=== PATIENT | female | born 1975 | race Asian ===

== ENCOUNTER → 2018-03-23 | Outpatient (CLI) | payer OTHER ==
[~2018-03-23] MED LIST: CYCL10 PO; DIAZ5 PO; HYDACE5 PO; MULVITMINE PO; OMEP10ER PO; PROACE100 PO
== END ==
LOC: LAB 15:05 → LAB SHORT 15:05
PROVIDERS: Obstetrics & Gynecology
DX: Z01.419 Encounter for gynecological examination (general) (routine) without abnormal findings (principal)
CPT/HCPCS: 87624; G0123

== ENCOUNTER → 2018-04-06 | Outpatient (CLI) | payer OTHER | END | disposition home or self-care (01) | LOC: LAB SHORT 13:23 → PLD 13:23 | PROVIDERS: Obstetrics & Gynecology | DX: R87.612 Low grade squamous intraepithelial lesion on cytologic smear of cervix (LGSIL) (principal) | CPT/HCPCS: 88305 ==

== ENCOUNTER 2021-06-03 02:00 | Inpatient (IN) | payer OTHER ==
[~2021-06-03] VITALS: Ht 152.4 cm; Wt 70.0 kg
[~2021-06-03 02:00] MED LIST changes: -MULVITMINE PO; -OMEP10ER PO; +OMEP20ER PO; +PRENATAL TABLE1 EAC2 PO
[2021-06-03 02:46] LABS: BASOPHILS ABSOLUTE AUTO 0.03 K/mm3 (0.00-0.23); BASOPHILS PERCENT AUTO 1 % (0-2); EOSINOPHILS ABSOLUTE AUTO 0.07 K/mm3 (0.00-0.68); EOSINOPHILS PERCENT AUTO 1 % (0-6); Hematocrit 44.7 % (33.0-51.0); Hemoglobin 14.6 g/dL (11.5-16.0); IMMATURE GRAN ABSOLUTE AUTO 0.03 K/mm3 (0.00-0.10); IMMATURE GRAN PERCENT AUTO 1 % (0-1); LYMPHOCYTES ABSOLUTE AUTO 2.65 K/mm3 (0.84-5.20); LYMPHOCYTES PERCENT AUTO 49 % (21-46); MONOCYTES ABSOLUTE AUTO 0.83 K/mm3 (0.16-1.47); MONOCYTES PERCENT AUTO 16 % (4-13); Mean Corpuscular HGB 31.1 pg (26.0-34.0); Mean Corpuscular HGB Conc 32.7 g/dL (31.5-36.5); Mean Corpuscular Volume 95 fL (80-100); Mean Platelet Volume 8.9 fL (9.1-12.4); NEUTROPHILS ABSOLUTE AUTO 1.75 K/mm3 (1.96-9.15); NEUTROPHILS PERCENT AUTO 33 % (41-73); Platelet Count 153 K/mm3 (150-400); RDW Coefficient Variation 13.2 % (11.7-14.2); RDW Standard Deviation 46.7 fL (35.1-46.3); Red Blood Cell Count 4.69 M/mm3 (3.80-5.20); White Blood Cell Count 5.36 K/mm3 (4.00-11.30)
[2021-06-03 03:07] LABS: Alanine Aminotransfer (ALT/SGP 42 U/L (12-78); Albumin, Blood 2.7 g/dL (3.4-5.0); Albumin/Globulin Ratio 0.9 (0.8-1.8); Alk Phos 60 U/L (50-136); Anion Gap 6 mmol/L (6-16); Aspartate Aminotrans (AST/SGOT 42 U/L (12-37); Bilirubin, Total 0.2 mg/dL (0.1-1.0); Blood Urea Nitrogen 12 mg/dL (8-24); Bun/Creatinine Ratio 15.8 (12.0-20.0); CO2, Blood 24 mmol/L (21-32); Calcium, Blood 7.9 mg/dL (8.5-10.1); Chloride, Blood 107 mmol/L (98-108); Creatinine, Blood 0.76 mg/dL (0.40-1.00); Globulin, Blood 3.1 g/dL (2.2-4.0); Glomerular Filtration Rate >60 (60-); Glucose, Blood 114 mg/dL (70-99); Potassium, Blood 3.4 mmol/L (3.5-5.5); Sodium, Blood 137 mmol/L (136-145); Total Protein, Blood 5.8 g/dL (6.4-8.2); Troponin I 0.314 ng/mL (0.000-0.040)
[2021-06-03 08:09] LABS: CHOL/HDL RATIO 4.2; Cholesterol 129 mg/dL (50-200); HDL Cholesterol 31 mg/dL (>39); LDL/HDL RATIO 2.1; Low Density Lipoprotein Chol 66 mg/dL (0-110); Triglycerides 159 mg/dL (30-160); Very Low Density Lipoprot Chol 31 mg/dL (6-32)
[2021-06-03] MEDS ORDERED: THERA-D2000 UNIT PO (09:03)
[2021-06-03] MEDS ORDERED: OMEGA-3 FISH O1 EAC6 PO (09:03)
[2021-06-03] MEDS ORDERED: MAGNESIUM OXID500 MG PO (09:04)
[2021-06-03] MEDS ORDERED: CYAN500 PO (09:06)
[2021-06-03] MEDS ORDERED: IODINE SL (09:06)
[2021-06-03] MEDS ORDERED: POTASSIUM SL (09:06)
[2021-06-03 10:09] LABS: Source, Urine Clean Catch
[2021-06-03 10:13] LABS: Bilirubin, Urine Neg (Neg); Blood, Urine Neg (Neg); Glucose Qualitative, Urine Neg (Neg); Ketones, Urine Neg (Neg); Leukocyte Esterase, Urine Neg (Neg); Nitrite, Urine Neg (Neg); Protein, Urine 2+ (Neg); Specific Gravity, Urine 1.015 (1.003-1.022); Urobilinogen, Urine NORM (Normal); pH, Urine 6.5 (5.0-8.0)
[2021-06-03 10:26] LABS: Appearance, Urine Hazy (Clear); Color, Urine Yellow (P-Yellow)
[2021-06-03 10:27] LABS: Bacteria Rare /hpf; Red Blood Cells, Urine Not Seen /hpf (0-2); Squamous Epithelial Cells Few /hpf (Few); White Blood Cells, Urine Not Seen /hpf (0-5)
[2021-06-03 10:33] LABS: U Amphetamine Screen Not Detected; U Barbituate Screen Not Detected; U Benzodiazapine Screen Not Detected; U Buprenorphine Screen Not Detected; U Cannabinoids Screen Not Detected; U Cocaine Screen Not Detected; U Methadone Screen Not Detected; U Methamphetamine Screen Not Detected; U Opiates Screen Not Detected; U Oxycodone Screen Not Detected; U Phencyclidine Screen Not Detected; U Propoxyphene Screen Not Detected
--- NOTE | 2021-06-03 12:39 | NUR ---
PT ADMITTED TO ICU 1 THIS MORNING. PT ALERT AND ORIENTED, BUT STATES SHE FEELS DIZZY AND HAS BLURRY VISION. SBP HOVERING AROUND THE 90S UPON ARRIVAL THEN DIPPED TO THE 70S. MAP STAYED IN THE 60S. DR. KIRKPATRICK NOTIFIED AND ORDER RECEIVED FOR 1LNS BOLUS. PT'S BP IMPROVED BACK UP TO THE 90S WITH BOLUS ANDPT STATES SHE IS FEELING A LITTLE BETTER. DR. HARTMAN NOTIFIED OF CONSULT AND CAME TO SEE PT. AFTER SEEING PT SHE GAVE ORDERS TO DC HEPARIN GTT. ALSO GAVE ORDERS FOR URINE HCG. NOTIFIED LAB TO ADD THIS ON TO URINE THAT WAS JUST SENT. STILL CURRENTLY WAITING FOR RESULTS AND LAB JUST CALLED AGAIN TO FIGURE OUT WHY IT HASN'T RESULTED YET. SR TO ST WITH RATE IN THE 90-LOW 100S. PT WAS HELD NPO UNTIL DR. HARTMAN SAW HER AND GAVE OK FOR HER TO EAT. VOIDED USING BEDPAN PT HAD SYNCOPAL EPISODE IN ED. PT HAVING VENOUS DUPLEX CURRENTLY. CONTINUING TO MONITOR.
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
[2021-06-03] MEDS ORDERED: POTASSIUM IOD SL (14:28)
--- NOTE | 2021-06-03 17:39 | NUR ---
SHIFT SUMMARY PT HAS BEEN RESTING IN BED THROUGHOUT THE AFTERNOON. HER HYPOTENSION AND DIZZINESS HAVE BEEN BETTER SINCE RECEIVING A FLUID BOLUS. SHE ATE LUNCH AND DINNER. LUNGS ARE CLEAR, RA. ST IN THE LOW 100S. CHEST DISCOMFORT HAS BEEN BETTER THIS AFTERNOON. PT GOT UP TO THE TOILET THIS AFTERNOON AND TOLERATED IT WELL. HER CAME AND VISITED. NO OTHER CONCERNS FROM PT AT THIS TIME. CONTINUE TO MONITOR.
--- NOTE | 2021-06-04 06:03 | NUR ---
SHIFT SUMMARY PATIENT FOUND TO BE A&OX4. ON RA. SOFT BP'S ALL SHIFT BUT STABLE. ASYMPTOMATIC RESTING IN BED. HR ST IN THE LOW 100'S-120'S. COMPLAINTS OF PLEURITIC TYPE CHEST PAIN WHICH WORSENS WITH EATING AN ACTIVITY. STATED "IT FEELS LIKE IM RUNNING ON A TREADMILL." THIS WAS RELIEVED TO TOLERABLE DISCOMFORT AFTER FENT PRN X1 AND SOME GOOD REST. WAS NOT ABLE TO EAT MOST OF DINNER DUE TO THIS DISCOMFORT.NO COMPLAINTS OF PAIN THIS AM. UP WITH STAND BY ASSIST TO BSC. SOME MILD DIZZINESS WITH MOVEMENT SO TAKING IT SLOW. IMPROVING PER PATIENT REPORT. IV FLUIDS INFUSING PER ORDER. NO ACUTE CONCERNS AT THIS TIME. WILL CONTINUE TO MONITOR UNTIL REPORT GIVEN TO JAQUAN WINSTON.
--- NOTE | 2021-06-04 13:21 | NUR ---
Patient is sitting on a chair and alert. Patient tells me about the positive news related to her heart and how the treatment with medications is helping with her chest pain and with her neck pain. Patient talks about her children and the struggles they are going through with having their mom in the hospital. I provide therapeutic listening and prayer. Patient responds well and shows signs of an elevated mood.
[2021-06-04 15:56] LABS: BASOPHILS ABSOLUTE AUTO 0.03 K/mm3 (0.00-0.23); BASOPHILS PERCENT AUTO 1 % (0-2); EOSINOPHILS ABSOLUTE AUTO 0.01 K/mm3 (0.00-0.68); EOSINOPHILS PERCENT AUTO 0 % (0-6); Hematocrit 41.7 % (33.0-51.0); Hemoglobin 13.5 g/dL (11.5-16.0); IMMATURE GRAN ABSOLUTE AUTO 0.12 K/mm3 (0.00-0.10); IMMATURE GRAN PERCENT AUTO 2 % (0-1); LYMPHOCYTES ABSOLUTE AUTO 1.07 K/mm3 (0.84-5.20); LYMPHOCYTES PERCENT AUTO 19 % (21-46); MONOCYTES ABSOLUTE AUTO 0.65 K/mm3 (0.16-1.47); MONOCYTES PERCENT AUTO 11 % (4-13); Mean Corpuscular HGB 31.5 pg (26.0-34.0); Mean Corpuscular HGB Conc 32.4 g/dL (31.5-36.5); Mean Corpuscular Volume 97 fL (80-100); Mean Platelet Volume 9.6 fL (9.1-12.4); NEUTROPHILS ABSOLUTE AUTO 3.81 K/mm3 (1.96-9.15); NEUTROPHILS PERCENT AUTO 67 % (41-73); Platelet Count 137 K/mm3 (150-400); RDW Coefficient Variation 13.8 % (11.7-14.2); RDW Standard Deviation 50.2 fL (35.1-46.3); Red Blood Cell Count 4.28 M/mm3 (3.80-5.20); White Blood Cell Count 5.69 K/mm3 (4.00-11.30)
[2021-06-04 16:11] LABS: Alanine Aminotransfer (ALT/SGP 86 U/L (12-78); Albumin, Blood 1.9 g/dL (3.4-5.0); Albumin/Globulin Ratio 0.8 (0.8-1.8); Alk Phos 99 U/L (50-136); Anion Gap 6 mmol/L (6-16); Aspartate Aminotrans (AST/SGOT 95 U/L (12-37); Bilirubin, Total 0.3 mg/dL (0.1-1.0); Blood Urea Nitrogen 12 mg/dL (8-24); Bun/Creatinine Ratio 20.2 (12.0-20.0); CO2, Blood 19 mmol/L (21-32); Calcium, Blood 6.7 mg/dL (8.5-10.1); Chloride, Blood 115 mmol/L (98-108); Globulin, Blood 2.4 g/dL (2.2-4.0); Glomerular Filtration Rate >60 (60-); Glucose, Blood 173 mg/dL (70-99); Potassium, Blood 4.9 mmol/L (3.5-5.5); Sodium, Blood 140 mmol/L (136-145); Total Protein, Blood 4.3 g/dL (6.4-8.2)
--- NOTE | 2021-06-04 17:18 | NUR ---
PT TO IT SECURITY ADMINISTRATOR
--- NOTE | 2021-06-04 17:41 | NUR ---
SHIFT SUMMARY ASSUMED CARE OF PATIENT AT 0700. PT A&Ox4; CALM AND COOPERATIVE WITH CARE. SBA IN ROOM, UP TO BSC, ASSIT WITH WIRE/TUBES. PT DENIES PAIN, CHEST PAIN, SOB, NASUEA AND DIZZINESS. BP SOFT, HR 90-120'S SINUS/SINUS TACH. OTHER VSS. LR AT 125 ML/HR RUNNING. EDEMA NOTE TO BILATERAL HANDS AND FEET, PT REPORT TIGHTNESS TO EXTREMITIES. 1040- DR KIRKPATRICK AT BEDSIDE, NEW ORDER TO STOP IV FLUIDS AND MONITOR BP. NEW ORDERS FOR LOPRESSOR 12.5MG PO TO HELP WITH HR. 1110- METOPROLOL ADMINISTRED. PT SET TO Q15M BP. UP TO BSC AND VOIDED. UP IN CHAIR. 1240-THIS RN TO ROOM, PT BACK IN BED, STATES BP CUFF FELL OFF. PT PALES, REPORTS FEELING CALMY AND DIZZY AND APPEARS DIAPHORETIC. HYPOTENSION. RESTARTED LR AT 999; NOTIFIED DR KIRKPATRICK NEW ORDER FOR DOPAMIN, STARTED 1252. NOTIFIED DR HARTMAN, WILL CONTACT DR KIRKPATRICK. 1300- NOTIFIED DR KIRKPATRICK OF NO CHANGES; NEW ORDER FOR 1L BOLUS NS, LEVOPHED AND MAIN NS AT 100ML/HR. LEVOPHED STARTED AT 1319, TITRATED DOPAMIN OFF AT 1322. 1430- TITRATED LEVOPHEN AT 24MCG/MIN; UNABLE TO CONSISTANTLY READ BP; NEW ORDERS FOR ADDITIONAL NS BOLUS. NEW ORDERS FOR CBC, CMP, LACTIC AND STAT ECHO. 1520- PICC RN AT BEDSIDE PLACING PICC TO LAUREN; PIV PAINFUL, PT REQUESTING TO REMOVE THEM. PICC LINE PLACED, RESTARED BOLUS AND LEVOPHED. 1618- NOTIFIED DR HARTMAN; AT BEDSIDE FOR TO REVIEW ECHO. NOTIFIED DR KIRKPATRICK OF LACTIC ACID 3.1. MINNIE AT BEDSIDE TO CONSENT PATIENT FOR PROCEDURE. DR MANTILLA AT BEDSIDE TO DISCUSS PROCEDURE. BP UNRELIABLE; ATTEMPTING MANUAL, USING DOPPLER. 1718- PT TO PIN DRAFTER OPERATOR. WITH PATIENT.
[2021-06-04 19:15] LABS: Automated BF WBC Count 0.017 K/mm3 (0-999); Body Fluid WBC Count 17 /mm3 (0-999)
[2021-06-04 19:33] LABS: RBC Count, Body Fluid 468 /mm3 (0-0)
[2021-06-04 19:43] LABS: Lactate Dehydrogenase, Body Fl 223 U/L
[2021-06-04 19:57] LABS: Total Cell Count, Body Fluid 19
[2021-06-04 19:58] LABS: Appearance, Body Fluid Clear (Clear); Color, Body Fluid L Yellow (None-Yellow)
--- NOTE | 2021-06-04 22:08 | NUR ---
PRESSORS/O2 LEVOPHED GTT AT 10MCGS AT BEGINNING OF SHIFT, CBP>110 WITH MAP >60. NS INFUSING @200 MLS/HR. LEVOPHED TIRATING DOWN. PT ON 2LNC. 221 - LEVOPHED SUCCESFULLY TITRATED OFF, MAP REMAINS >65. PT NOW ON RA W/ SPO2 >97%.
[2021-06-05 03:40] LABS: Hematocrit 35.7 % (33.0-51.0); Hemoglobin 11.9 g/dL (11.5-16.0); Mean Corpuscular HGB Conc 33.3 g/dL (31.5-36.5); Mean Corpuscular Volume 96 fL (80-100); Mean Platelet Volume 9.8 fL (9.1-12.4); Platelet Count 101 K/mm3 (150-400); RDW Coefficient Variation 13.6 % (11.7-14.2); RDW Standard Deviation 48.1 fL (35.1-46.3); Red Blood Cell Count 3.72 M/mm3 (3.80-5.20); White Blood Cell Count 3.72 K/mm3 (4.00-11.30)
[2021-06-05 03:59] LABS: Alanine Aminotransfer (ALT/SGP 67 U/L (12-78); Albumin, Blood 1.4 g/dL (3.4-5.0); Albumin/Globulin Ratio 0.7 (0.8-1.8); Alk Phos 74 U/L (50-136); Anion Gap 9 mmol/L (6-16); Aspartate Aminotrans (AST/SGOT 51 U/L (12-37); Bilirubin, Total 0.4 mg/dL (0.1-1.0); Blood Urea Nitrogen 9 mg/dL (8-24); Bun/Creatinine Ratio 16.4 (12.0-20.0); CO2, Blood 16 mmol/L (21-32); Chloride, Blood 119 mmol/L (98-108); Creatinine, Blood 0.55 mg/dL (0.40-1.00); Globulin, Blood 2.1 g/dL (2.2-4.0); Glomerular Filtration Rate >60 (60-); Glucose, Blood 249 mg/dL (70-99); Sodium, Blood 144 mmol/L (136-145); Total Protein, Blood 3.5 g/dL (6.4-8.2)
[2021-06-05 04:00] LABS: Calcium, Blood <5.0 mg/dL (8.5-10.1); Potassium, Blood 2.9 mmol/L (3.5-5.5)
[2021-06-05 05:55] LABS: BAND PERCENT MAN 17 % (0-8); BASOPHILS PERCENT MAN 0 % (0-2); EOSINOPHILS PERCENT MAN 0 % (0-6); LYMPHOCYTES ABSOLUTE MAN 0.11 K/mm3 (0.84-5.20); LYMPHOCYTES PERCENT MAN 3 % (21-46); MONOCYTES PERCENT MAN 11 % (4-13); NEUTROPHILS ABSOLUTE MAN 3.19 K/mm3 (1.96-9.15); SEG NEUTROPHILS PERCENT MAN 69 % (41-73); TOTAL CELLS COUNTED 100
[2021-06-05 06:10] LABS: HBSAG SCREEN Negative (Negative); HEP A AB, IGM Negative (Negative); HEP B CORE AB, IGM Negative (Negative); HEP C VIRUS AB <0.1 (0.0-0.9)
--- NOTE | 2021-06-05 06:19 | NUR ---
SHIFT SUMMARY ASSUMED CARE OF PT AT 1900. PT IS A/OX4. HEART SOUNDS REGULAR, LUNG SOUNDS DIMINISHED AT THE BASES. PT HAS A PERICARDIAL DRAIN, THERE WAS ABOUT 50CC OF RED TINGED DRAINAGE T/O THE NIGHT. PT WAS ON A LEVOPHED DRIP AT THE BEGINNING OF THE SHIFT AND TITRATED OFF AT AROUND 2200. WHEN PT WAS BREANA FOR ABOUT AN HOUR, PT WATCHED ON THE HEART MONITOR THAT HER BP WAS TRENDING DOWN TO THE 90'S AND ASKED TO BE PUT BACK ON DUE TO FEELING SYMPTOMATIC. PT WAS THEN TITRATED BACK UP TO 8MCG/MIN FOR ABOUT 4 HOURSE WHEN SHE WAS TIRATED BACK DOWN MORE SLOWLY. PT WILL BE ON 1MCG/MIN AT THE END OF THIS SHIFT. PT WAS CONTIENT TO THE BED MANRIQUEZ. URINE CLEAR AND YELLOW. PT C/O FEELING VERY EDEMADOUS, MAKING HER TOES AND FINGERS TINGLY. EDEMA IS NON-PITTING. DR HARTMAN SAW PT THIS AM. TOLD PT THAT SHE NEEDS TO GET OFF THE LEVOPHED SOON POSSIBLE AND THAT WILL HAVE AN ECHO THIS AM TO SEE HOW HER HEART IS DOING AND POSSIBLY HAVE THE DRAIN TAKEN OUT TODAY. SHE SAID THE PT SHOULD STAY ONE MORE NIGHT FOR OBSERVATION. CALL LIGHT IN REACH, BED IN LOWEST POSITION.
--- NOTE | 2021-06-05 07:30 | NUR ---
ASSUMED CARE BEDSIDE REPORT RECIEVED. PT IS LAYING IN BED AWAKE, ALERT, AND ORIENTED. PT COMPLAINS OF MILD CHEST DISCOMFORT AT PERICARDIAL DRAIN INSERTION SITE. PERICARDIAL DRAIN IS C/D/I. MINIMAL SEROUS OUTPUT NOTED IN COLLECTION BAG. VITAL SIGNS STABLE. LEVOPHED PLACED ON STANDBY. PT ON ROOM AIR. PICC TO LAUREN C/D/I. WILL CONTINUE TO MONITOR.
[2021-06-05 09:55] LABS: Anion Gap 8 mmol/L (6-16); Blood Urea Nitrogen 9 mg/dL (8-24); Bun/Creatinine Ratio 12.6 (12.0-20.0); CO2, Blood 21 mmol/L (21-32); Calcium, Blood 6.4 mg/dL (8.5-10.1); Chloride, Blood 117 mmol/L (98-108); Creatinine, Blood 0.72 mg/dL (0.40-1.00); Glomerular Filtration Rate >60 (60-); Glucose, Blood 156 mg/dL (70-99); Sodium, Blood 146 mmol/L (136-145)
[2021-06-05 17:11] LABS: ANA DIRECT Negative (Negative); ANTI-DNA (DS) AB QN <1 IU/mL (0-9); RNP ANTIBODIES <0.2 AI (0.0-0.9); SJOGREN'S ANTI-SS-A <0.2 AI (0.0-0.9); SJOGREN'S ANTI-SS-B <0.2 AI (0.0-0.9); SMITH ANTIBODIES <0.2 AI (0.0-0.9)
--- NOTE | 2021-06-05 17:40 | NUR ---
SHIFT SUMMARY NO ACUTE CHANGES THIS SHIFT. PT HAS REMAINED AWAKE, ALERT, AND ORIENTED. PT HAS HAD MILD DISCOMFORT AT TIMES AT PERICARDIAL DRAIN INSERTION SITE. PERICARDIAL DRAIN SITE REMAINS C/D/I. 50 CC OF SEROUS OUTPUT NOTED IN GRAVITY BAG. PICC LINE TO LAUREN REMAINS C/D/I. SALINE LOCKED AT THIS TIME. PT REMAINS ON ROOM AIR. VITAL SIGNS STABLE. PT TOLERATING PO DIET WELL. PT UP TO BSC WITH MINIMAL ASSISTANCE. WILL CONTINUE TO MONITOR AND REPORT OFF TO ONCOMING RN.
--- NOTE | 2021-06-05 20:00 | NUR ---
CARE ASSUMPTION PT A&O X4. MONITOR SHOWS ST, HR 110's. SPO2 > 92% ON RA. VSS. PT REPORTS FEELING MORE "RELAXED" THIS EVENING. PERICARDIAL DRAIN C/D/I W/ SMALL AMOUNT CLEAR/YELLOW OUTPUT IN DRAINAGE BAG. PT DENIES PAIN/DISCOMFORT AT THIS TIME. WILL CONTINUE TO MONITOR & PROVIDE CARE.
[2021-06-06 03:58] LABS: Hematocrit 37.8 % (33.0-51.0); Hemoglobin 12.6 g/dL (11.5-16.0); Mean Corpuscular HGB 31.7 pg (26.0-34.0); Mean Corpuscular HGB Conc 33.3 g/dL (31.5-36.5); Mean Corpuscular Volume 95 fL (80-100); Mean Platelet Volume 9.4 fL (9.1-12.4); Platelet Count 98 K/mm3 (150-400); RDW Standard Deviation 49.1 fL (35.1-46.3); Red Blood Cell Count 3.97 M/mm3 (3.80-5.20); White Blood Cell Count 3.07 K/mm3 (4.00-11.30)
[2021-06-06 04:15] LABS: Alanine Aminotransfer (ALT/SGP 103 U/L (12-78); Albumin, Blood 1.8 g/dL (3.4-5.0); Albumin/Globulin Ratio 0.8 (0.8-1.8); Alk Phos 67 U/L (50-136); Anion Gap 4 mmol/L (6-16); Aspartate Aminotrans (AST/SGOT 74 U/L (12-37); Bilirubin, Total 0.2 mg/dL (0.1-1.0); Blood Urea Nitrogen 11 mg/dL (8-24); Bun/Creatinine Ratio 13.7 (12.0-20.0); CO2, Blood 24 mmol/L (21-32); Calcium, Blood 6.7 mg/dL (8.5-10.1); Chloride, Blood 113 mmol/L (98-108); Globulin, Blood 2.4 g/dL (2.2-4.0); Glomerular Filtration Rate >60 (60-); Glucose, Blood 99 mg/dL (70-99); Sodium, Blood 141 mmol/L (136-145); Total Protein, Blood 4.2 g/dL (6.4-8.2)
[2021-06-06 04:19] LABS: BAND PERCENT MAN 15 % (0-8); BASOPHILS ABSOLUTE MAN 0.03 K/mm3 (0.00-0.23); BASOPHILS PERCENT MAN 1 % (0-2); EOSINOPHILS PERCENT MAN 0 % (0-6); LYMPHOCYTES ABSOLUTE MAN 0.46 K/mm3 (0.84-5.20); LYMPHOCYTES PERCENT MAN 15 % (21-46); MONOCYTES ABSOLUTE MAN 0.42 K/mm3 (0.16-1.47); MONOCYTES PERCENT MAN 14 % (4-13); MYELOCYTE ABSOLUTE MAN 0.03 K/mm3 (0.00-0.00); MYELOCYTE PERCENT MAN 1 % (0-0); NEUTROPHILS ABSOLUTE MAN 2.11 K/mm3 (1.96-9.15); SEG NEUTROPHILS PERCENT MAN 54 % (41-73); TOTAL CELLS COUNTED 100
--- NOTE | 2021-06-06 06:43 | NUR ---
SHIFT SUMMARY PT CONTINUES TO BE A&O X4. MONITOR SHOWING ST, HR 100-130. BP LOW, BUT STABLE. LEVOPHED REMAINS OFF T/O SHIFT. SPO2 > 92% ON RA. PERICARDIAL DRAIN C/D/I W/ SMALL AMOUNT CLEAR/YELLOW OUTPUT IN DRAINAGE BAG W/ MINIMAL TO NO FURTHER DRAINAGE BEYOND 06/05/21 1730 MARKED LINE. PT W/ +2 BUE SWELLING W/ PT REPORT OF "MY R HAND IS SO SWOLLEN AND STIFF IT'S BECOMING DIFFICULT TO FEED MYSELF." PT ALSO C/O BEING INTERMITTENTLY HOT THEN COLD T/O SHIFT, REQUESTING BLANKETS BE ADDED, THEN REMOVED, & FAN BE TURNED ON & THEN TURNED OFF. PT TEMP INCREASE TO 99.0 THIS SHIFT. BLANKETS REMOVED. FAN ON PT. MD HARTMAN IN TO SEE PT THIS AM W/ REPORT OF LIKELY PLAN FOR PERICARDIAL DRAIN TO BE REMOVED TODAY & PICC LINE NEEDING TO BE SLIGHTLY WITHDRAWN & LIKELIHOOD THAT PICC LOCATION CONTRIBUTING TO PT's TACHYCARDIA.
--- NOTE | 2021-06-06 09:13 | NUR ---
UPDATE DURING REPORT, RECIEVED INFORMATION REGARDING PT TO BE NPO PER CARDIOLOGY AWAITING POSSIBLE PROCEDURE FROM HOSPITALIST. HOSPITALIST INFORMED, NO PROCEDURE PLANNED TODAY. PT TO BE REG DIET TOLERATED.
--- NOTE | 2021-06-06 09:48 | NUR ---
PICC LINE PLACEMENT SOURCING COORDINATOR TO RETRACT PICC LINE PER NURSE NOTIFY REQUEST.
--- NOTE | 2021-06-06 12:29 | NUR ---
PERICARDIAL DRAIN REMOVAL CARDIOLOGY AND SILICA MIXER OPERATOR AT BEDSIDE FOR PERICARDIAL DRAIN REMOVAL. PT TOLERATED WELL.
--- NOTE | 2021-06-06 14:21 | NUR ---
PHYSICIAN AT BEDSIDE HOSPITALIST AT BEDSIDE. PT NOW TO BE PCU STATUS. WILL ENCOURAGE PT TO MOVE IN ROOM TOLERATED. NO OTHER ORDERS AT THIS TIME.
--- NOTE | 2021-06-06 16:42 | NUR ---
PHYSICIAN UPDATED PHYSICIAN UPDATED ON PT'S IONIZED CALCIUM LEVEL AT THIS TIME. ORDERS PROVIDED, SEE EHR.
--- NOTE | 2021-06-06 17:40 | NUR ---
SHIFT SUMMARY PT ALERT AND ORIENTED X 4. HR TACHY AT TIMES. BP STABLE. NO CP OR PRESSURE. PT ABLE TO TURN SELF IN BED. SBA TO COMMODE. PT REPORTS SWELLING IN BLE AND BUE. PHYSICIAN AWARE. PERICARDIAL DRAIN REMOVED AT BEDSIDE WITH CARDIOLOGY AND EXCAVATOR BACKHOE OPERATOR. SITE WNL. DRESSING C/D/I. NO CP OR PRESSURE REPORTED. OXYGEN SATURATION MAINTAINED ABOVE 92% ON RA. PICC LINE RETRACTED BY EXCAVATOR BACKHOE OPERATOR, SEE NOTES. CHEST X RAY CONFIRMED PROPER PLACEMENT. WILL CONT TO MONITOR UNTIL REPORT GIVEN TO NIGHTSHIFT RN.
[2021-06-07 05:18] LABS: Hematocrit 37.5 % (33.0-51.0); Hemoglobin 12.4 g/dL (11.5-16.0); Mean Corpuscular HGB 31.8 pg (26.0-34.0); Mean Corpuscular HGB Conc 33.1 g/dL (31.5-36.5); Mean Corpuscular Volume 96 fL (80-100); Mean Platelet Volume 9.8 fL (9.1-12.4); Platelet Count 93 K/mm3 (150-400); RDW Coefficient Variation 14.3 % (11.7-14.2); RDW Standard Deviation 50.6 fL (35.1-46.3); White Blood Cell Count 1.91 K/mm3 (4.00-11.30)
[2021-06-07 05:36] LABS: Alanine Aminotransfer (ALT/SGP 73 U/L (12-78); Albumin, Blood 1.8 g/dL (3.4-5.0); Albumin/Globulin Ratio 0.7 (0.8-1.8); Alk Phos 60 U/L (50-136); Anion Gap 5 mmol/L (6-16); Aspartate Aminotrans (AST/SGOT 56 U/L (12-37); Bilirubin, Total 0.2 mg/dL (0.1-1.0); Blood Urea Nitrogen 12 mg/dL (8-24); Bun/Creatinine Ratio 14.7 (12.0-20.0); CO2, Blood 25 mmol/L (21-32); Calcium, Blood 7.4 mg/dL (8.5-10.1); Chloride, Blood 113 mmol/L (98-108); Creatinine, Blood 0.82 mg/dL (0.40-1.00); Globulin, Blood 2.5 g/dL (2.2-4.0); Glomerular Filtration Rate >60 (60-); Glucose, Blood 91 mg/dL (70-99); Phosphorus, Blood 3.4 mg/dL (2.5-4.9); Potassium, Blood 3.9 mmol/L (3.5-5.5); Sodium, Blood 143 mmol/L (136-145); Total Protein, Blood 4.3 g/dL (6.4-8.2)
--- NOTE | 2021-06-07 06:02 | NUR ---
SHIFT SUMMARY PATIENT FOUND TO BE A PLEASANT LADY WHO IS A&OX4. SBA IN ROOM. NO DIZZINESS OR PAIN NOTED. VSS. ON RA. NSR TO LOW SINUS TACHY ON THE MONITOR. VOIDING WELL. APPETITE AND ORAL INTAKE IMPROVING. PATIENT STATES SHES NOTICABLY GASSIER THAN USUAL. L CHEST DRAIN SITE C/D/I. NO ACUTE CONCERNS AT THIS TIME. WILL CONTINUE TO MONITOR UNTIL REPORT GIVEN TO DAYSHIFT RN.
--- NOTE | 2021-06-07 07:33 | NUR ---
pt laying in bed awake a/ox3, pleasant and cooperative with care, follows commands well, denies pain, states she is feeling a lot better, lungs are clear t/o, resp even and unlabored, no cough noted, she reports an occational productive cough of yellow sputum, currently on r/a, hrr, heart monitor in place running sr to st in low 100's, +1 edema noted to hands, kaveh right, and b/l le, ppp+1, cap refill <3sec, vs stable, afebrile, iv is picc line to devendra, site is clear infusing ns at tko, btx4, abd flat soft nontender, voids clear yellow urine without diff, skin c/w/d, has dressing mid chest where pericardial drain was removed yesters, site is c/d/i with occlusive dressing in place, maew, up indep, gait steady, no dizziness reported, jyoti, call light in reach.
--- NOTE | 2021-06-07 11:47 | NUR ---
pt is on the phone, states she is feeling almost back to normal, her v.s. are stable. no acute changes. call light in reach.
--- NOTE | 2021-06-07 12:07 | NUR ---
Grand of Care Pt is a/o x 4 and has no complaints. She is resting in bed and talking on the phone with her mom. KVO fluids infusing through PICC line. Per report pt has been up to commode with SBA. She has her call light in reach and is able to make her needs known.
[2021-06-07 13:09] LABS: HEPARIN INDUCED PLATELET AB 0.089 OD (0.000-0.400)
--- NOTE | 2021-06-07 14:48 | NUR ---
Pt has been assigned a room on medical floor and report was called to CATRACHITO Campbell. The room is still waiting to be cleaned. The pt has been notified about the pending room move. Pt will be transferred when room is ready.
--- NOTE | 2021-06-07 16:32 | NUR ---
Summary of care Pt was transferred after giving report to receiving nurse. She was a/o x 4 and had no c/o pain. Her PICC line was saline locked upon transfer. All of her personal items were sent with her. Pt notified her family of the room trasnfer and was agreeable to the move. Pt stable upon transport.
--- NOTE | 2021-06-07 17:29 | NUR ---
SHIFT SUMMARY PT TRANSFERRED TO UNIT FROM ICU 1 THIS SHIFT. RECEIVED REPORT FROM CATRACHITO MAR. PT AAOX4, ABLE TO MAKE NEEDS KNOWN, PLEASANT AND COOPERATIVE TO CARE. NO C/O PAIN OR ANY DISCOMFORT THIS SHIFT. DENIES CP, SOB, OR N&V. PT REQUIRES SBA TO BATHROOM. PT ON TELE AT SINUS TACH 102BPM. PT CALM AND COMFORTABLE IN ROOM AT THIS TIME WITH DAUGHTER AT BEDSIDE. BED AT LOWEST POSITION. CALL LIGHT WITHIN REACH.
[2021-06-08 06:22] LABS: BASOPHILS ABSOLUTE AUTO 0.02 K/mm3 (0.00-0.23); BASOPHILS PERCENT AUTO 1 % (0-2); EOSINOPHILS ABSOLUTE AUTO 0.01 K/mm3 (0.00-0.68); EOSINOPHILS PERCENT AUTO 1 % (0-6); Hematocrit 35.7 % (33.0-51.0); Hemoglobin 11.9 g/dL (11.5-16.0); Mean Corpuscular HGB 31.6 pg (26.0-34.0); Mean Corpuscular HGB Conc 33.3 g/dL (31.5-36.5); Mean Corpuscular Volume 95 fL (80-100); Mean Platelet Volume 10.1 fL (9.1-12.4); Platelet Count 96 K/mm3 (150-400); RDW Coefficient Variation 14.1 % (11.7-14.2); RDW Standard Deviation 49.1 fL (35.1-46.3); Red Blood Cell Count 3.76 M/mm3 (3.80-5.20); White Blood Cell Count 1.71 K/mm3 (4.00-11.30)
--- NOTE | 2021-06-08 06:23 | NUR ---
SUMMARY: PT A/OX4, CALLS APPROPRIATELY AND IS PLEASANT AND COOPERATIVE W/CARE. SHE'S DENIED PAIN, CP, SOB, N/V, CARDIAC DISTRESS AND ALL OTHER COMPLAINTS. PT IS SBA TO TOILET PER REQUEST D/T NUMNESS OF FEET R/T EDEMA. MODERATE SWELLING NOTED TO BLE'S AND RUE EDEMA >LUE. RUE HAD SUPERFICIAL THROMBUS PER IMAGING. TEGADERM DX TO MID CHEST POST PERICARDIAL DRAIN REMOVAL REMAINS C/D/I. SHE'S NSR/S.TACH AT 90'S-100'S BPM. PICC TO LAUREN IS SL. NO ACUTE CHANGES, VSS AND AFEBRILE. WCTM AND REPORT TO DAY RN.
[2021-06-08 06:43] LABS: Albumin, Blood 1.9 g/dL (3.4-5.0); Anion Gap 5 mmol/L (6-16); Blood Urea Nitrogen 11 mg/dL (8-24); Bun/Creatinine Ratio 13.7 (12.0-20.0); CO2, Blood 27 mmol/L (21-32); Calcium, Blood 7.2 mg/dL (8.5-10.1); Chloride, Blood 110 mmol/L (98-108); Glomerular Filtration Rate >60 (60-); Glucose, Blood 100 mg/dL (70-99); Phosphorus, Blood 3.2 mg/dL (2.5-4.9); Potassium, Blood 3.3 mmol/L (3.5-5.5); Sodium, Blood 142 mmol/L (136-145)
[2021-06-08 06:44] LABS: IMMATURE GRAN ABSOLUTE AUTO 0.05 K/mm3 (0.00-0.10); IMMATURE GRAN PERCENT AUTO 3 % (0-1); LYMPHOCYTES ABSOLUTE AUTO 0.87 K/mm3 (0.84-5.20); LYMPHOCYTES PERCENT AUTO 51 % (21-46); MONOCYTES ABSOLUTE AUTO 0.24 K/mm3 (0.16-1.47); MONOCYTES PERCENT AUTO 14 % (4-13); NEUTROPHILS ABSOLUTE AUTO 0.52 K/mm3 (1.96-9.15); NEUTROPHILS PERCENT AUTO 30 % (41-73)
[2021-06-08] MEDS ORDERED: AMOCLA875 PO (11:59)
[2021-06-08] MEDS ORDERED: COLCHICINE0.6 MG PO (12:00)
[2021-06-08] MEDS ORDERED: Indomethacin25 MG PO (12:01)
[2021-06-08] MEDS ORDERED: VISBIOME 112.51 EACH PO (12:01)
--- NOTE | 2021-06-08 16:10 | NUR ---
DISCHARGE SUMMARY PT DISCHARGE TO HOME ORDERED AT 1355 THIS SHIFT. NO ACUTE CHANGES NOTED TO PT THIS SHIFT. PT VERBALIZED UNDERSTANDING OF DISCHARGE ORDERS AND EDUCATION. NO COMPLAINTS OR CONCERNS NOTED FROM PT PRIOR TO DC. PT DENIES ANY DISCOMFORT PRIOR TO DC. PICC LINE DISCONTINUED BY HOSPITAL MEDICAL BILLER PRIOR TO DC. DISCHARGE PACKET GIVEN TO PT UPON DISCHARGE.
[2021-06-09 00:09] LABS: HIV SCREEN 4TH GENERATION WRFX Non Reactive (Non Reactive)
== END 2021-06-08 13:56 | disposition home or self-care (01) | DRG 315 ==
LOC: ER 02:00 → ICUW 06:29 → ICUE 06:29 → MEDS 06-07 15:48
PROVIDERS: Family Medicine; Internal Medicine; Internal Medicine Cardiovascular Disease; Student in an Organized Health Care Education/Training Program; ADMIT Family Medicine
PROC: 02HV33Z Insertion of Infusion Device into Superior Vena Cava, Percutaneous Approach (ICD-10-PCS; principal; 2021-06-04)
PROC: 0W9D30Z Drainage of Pericardial Cavity with Drainage Device, Percutaneous Approach (ICD-10-PCS; 2021-06-04)
DX: I30.9 Acute pericarditis, unspecified (principal); E87.0 Hyperosmolality and hypernatremia; I31.4 Cardiac tamponade; E83.51 Hypocalcemia; I95.9 Hypotension, unspecified; T50.4X5A Adverse effect of drugs affecting uric acid metabolism, initial encounter; D70.2 Other drug-induced agranulocytosis; E88.09 Other disorders of plasma-protein metabolism, not elsewhere classified; R00.0 Tachycardia, unspecified; E86.0 Dehydration; E87.6 Hypokalemia; R79.89 Other specified abnormal findings of blood chemistry; R80.9 Proteinuria, unspecified; M54.2 Cervicalgia; D69.6 Thrombocytopenia, unspecified; F41.9 Anxiety disorder, unspecified; E78.5 Hyperlipidemia, unspecified; K21.9 Gastro-esophageal reflux disease without esophagitis; Z79.899 Other long term (current) drug therapy; Z91.048 Other nonmedicinal substance allergy status
CPT/HCPCS: 33016; 36415; 36569; 71045; 76705; 76937; 80048; 80053; 80061; 80069; 80074; 81001; 81025; 82330; 82533; 82947; 83605; 83615; 83690; 83880; 84100; 84132; 84311; 84443; 84484; 85025; 85027; 85379; 85651; 85730; 86022; 86038; 86140; 86225; 86235; 87040; 87070; 87077; 87102; 87147; 87186; 87205; 87389; 88108; 88305; 88341; 88342; 89051; 93005; 93010; 93306; 93308; 93321; 93970; 93971; 96374; 96375; 97110; 97161; 99152; 99153; 99285-25; A9270; C1751; C1769; J0610; J1265; J1644; J1720; J1885; J1940; J2250; J2405; J3010; J7030; J7040; J7050; J7060; J7120

== ENCOUNTER 2021-07-12 21:57 | Emergency (ER) | payer OTHER ==
[~2021-07-12] VITALS: Ht 152.4 cm; Wt 59.0 kg
[~2021-07-12 21:57] MED LIST changes: +AMOCLA875 PO; +COLCHICINE0.6 MG PO; +CYAN500 PO; +IODINE SL; +Indomethacin25 MG PO; +MAGNESIUM OXID500 MG PO; +OMEGA-3 FISH O1 EAC6 PO; +POTASSIUM IOD SL; +POTASSIUM SL; +THERA-D2000 UNIT PO; +VISBIOME 112.51 EACH PO
[2021-07-12 22:38] LABS: BASOPHILS ABSOLUTE AUTO 0.03 K/mm3 (0.00-0.23); BASOPHILS PERCENT AUTO 1 % (0-2); EOSINOPHILS ABSOLUTE AUTO 0.07 K/mm3 (0.00-0.68); EOSINOPHILS PERCENT AUTO 1 % (0-6); Hematocrit 37.4 % (33.0-51.0); Hemoglobin 12.7 g/dL (11.5-16.0); IMMATURE GRAN ABSOLUTE AUTO 0.04 K/mm3 (0.00-0.10); IMMATURE GRAN PERCENT AUTO 1 % (0-1); LYMPHOCYTES ABSOLUTE AUTO 2.75 K/mm3 (0.84-5.20); LYMPHOCYTES PERCENT AUTO 49 % (21-46); MONOCYTES ABSOLUTE AUTO 0.67 K/mm3 (0.16-1.47); MONOCYTES PERCENT AUTO 12 % (4-13); Mean Corpuscular HGB 31.8 pg (26.0-34.0); Mean Corpuscular Volume 94 fL (80-100); Mean Platelet Volume 9.3 fL (9.1-12.4); NEUTROPHILS ABSOLUTE AUTO 2.03 K/mm3 (1.96-9.15); NEUTROPHILS PERCENT AUTO 36 % (41-73); Platelet Count 238 K/mm3 (150-400); RDW Coefficient Variation 12.7 % (11.7-14.2); RDW Standard Deviation 44.2 fL (35.1-46.3); White Blood Cell Count 5.59 K/mm3 (4.00-11.30)
[2021-07-12 22:51] LABS: Alanine Aminotransfer (ALT/SGP 51 U/L (12-78); Albumin, Blood 3.8 g/dL (3.4-5.0); Albumin/Globulin Ratio 1.1 (0.8-1.8); Alk Phos 75 U/L (50-136); Anion Gap 9 mmol/L (6-16); Aspartate Aminotrans (AST/SGOT 41 U/L (12-37); Bilirubin, Total 0.2 mg/dL (0.1-1.0); Blood Urea Nitrogen 16 mg/dL (8-24); Bun/Creatinine Ratio 18.8 (12.0-20.0); CO2, Blood 24 mmol/L (21-32); Calcium, Blood 8.8 mg/dL (8.5-10.1); Chloride, Blood 107 mmol/L (98-108); Creatinine, Blood 0.85 mg/dL (0.40-1.00); Globulin, Blood 3.4 g/dL (2.2-4.0); Glomerular Filtration Rate >60 (60-); Glucose, Blood 100 mg/dL (70-99); Potassium, Blood 3.2 mmol/L (3.5-5.5); Sodium, Blood 140 mmol/L (136-145); Total Protein, Blood 7.2 g/dL (6.4-8.2); Troponin I <0.015 ng/mL (0.000-0.040)
== END 2021-07-13 00:35 | disposition home or self-care (01) ==
LOC: ER 21:57
PROVIDERS: Student in an Organized Health Care Education/Training Program
DX: E87.6 Hypokalemia (principal); E16.2 Hypoglycemia, unspecified; R00.0 Tachycardia, unspecified; K21.9 Gastro-esophageal reflux disease without esophagitis; Z88.8 Allergy status to other drugs, medicaments and biological substances; Z79.899 Other long term (current) drug therapy
CPT/HCPCS: 36415; 80053; 84484; 85025; 85379; 93005; 93010; A9270

== ENCOUNTER → 2021-08-22 | Outpatient (CLI) | payer OTHER ==
[2021-08-22 18:00] LABS: BASOPHILS ABSOLUTE AUTO 0.03 K/mm3 (0.00-0.23); BASOPHILS PERCENT AUTO 0 % (0-2); EOSINOPHILS ABSOLUTE AUTO 0.03 K/mm3 (0.00-0.68); EOSINOPHILS PERCENT AUTO 0 % (0-6); Hematocrit 40.3 % (33.0-51.0); Hemoglobin 13.8 g/dL (11.5-16.0); IMMATURE GRAN PERCENT AUTO 2 % (0-1); LYMPHOCYTES ABSOLUTE AUTO 2.07 K/mm3 (0.84-5.20); LYMPHOCYTES PERCENT AUTO 31 % (21-46); MONOCYTES ABSOLUTE AUTO 0.84 K/mm3 (0.16-1.47); MONOCYTES PERCENT AUTO 13 % (4-13); Mean Corpuscular HGB 31.9 pg (26.0-34.0); Mean Corpuscular HGB Conc 34.2 g/dL (31.5-36.5); Mean Corpuscular Volume 93 fL (80-100); Mean Platelet Volume 8.8 fL (9.1-12.4); NEUTROPHILS ABSOLUTE AUTO 3.61 K/mm3 (1.96-9.15); NEUTROPHILS PERCENT AUTO 54 % (41-73); Platelet Count 242 K/mm3 (150-400); RDW Standard Deviation 44.2 fL (35.1-46.3); Red Blood Cell Count 4.33 M/mm3 (3.80-5.20); White Blood Cell Count 6.68 K/mm3 (4.00-11.30)
[2021-08-22 18:11] LABS: Alanine Aminotransfer (ALT/SGP 36 U/L (12-78); Albumin, Blood 3.5 g/dL (3.4-5.0); Albumin/Globulin Ratio 0.9 (0.8-1.8); Alk Phos 84 U/L (40-126); Anion Gap 10 mmol/L (6-16); Aspartate Aminotrans (AST/SGOT 19 U/L (12-37); Bilirubin, Total 0.1 mg/dL (0.1-1.0); Blood Urea Nitrogen 8 mg/dL (8-24); CO2, Blood 26 mmol/L (21-32); Calcium, Blood 8.9 mg/dL (8.5-10.1); Chloride, Blood 104 mmol/L (98-108); Globulin, Blood 3.9 g/dL (2.2-4.0); Glomerular Filtration Rate >60 (60-); Glucose, Blood 102 mg/dL (70-99); Potassium, Blood 3.7 mmol/L (3.5-5.5); Sodium, Blood 140 mmol/L (136-145); Total Protein, Blood 7.4 g/dL (6.4-8.2)
[2021-08-22 18:12] LABS: Troponin I <0.017 ng/mL (0.000-0.040)
== END ==
LOC: LAB SHORT 17:54 → LAB 17:54
PROVIDERS: Physician Assistant
DX: R07.9 Chest pain, unspecified (principal)
CPT/HCPCS: 80053; 83880; 84484; 85025; 85379

== ENCOUNTER → 2022-11-18 | Outpatient (CLI) | payer OTHER ==
[~2022-11-18] MED LIST changes: +CEPH500 PO
== END | disposition home or self-care (01) ==
LOC: LAB SHORT 09:34 → PLD 09:34
DX: C50.912 Malignant neoplasm of unspecified site of left female breast (principal)
CPT/HCPCS: 88342

== ENCOUNTER 2023-11-17 21:42 | Emergency (ER) | payer OTHER ==
[~2023-11-17] VITALS: Ht 152.4 cm; Wt 61.2 kg
[2023-11-17 22:19] LABS: BASOPHILS ABSOLUTE AUTO 0.04 K/mm3 (0.00-0.23); BASOPHILS PERCENT AUTO 1 % (0-2); EOSINOPHILS ABSOLUTE AUTO 0.12 K/mm3 (0.00-0.68); EOSINOPHILS PERCENT AUTO 2 % (0-6); Hemoglobin 12.7 g/dL (11.5-16.0); IMMATURE GRAN ABSOLUTE AUTO 0.04 K/mm3 (0.00-0.10); IMMATURE GRAN PERCENT AUTO 1 % (0-1); LYMPHOCYTES PERCENT AUTO 44 % (21-46); MONOCYTES ABSOLUTE AUTO 0.62 K/mm3 (0.16-1.47); MONOCYTES PERCENT AUTO 9 % (4-13); Mean Corpuscular HGB 30.8 pg (26.0-34.0); Mean Corpuscular HGB Conc 33.4 g/dL (31.5-36.5); Mean Corpuscular Volume 92 fL (80-100); Mean Platelet Volume 8.6 fL (9.1-12.4); NEUTROPHILS ABSOLUTE AUTO 3.29 K/mm3 (1.96-9.15); NEUTROPHILS PERCENT AUTO 45 % (41-73); Platelet Count 211 K/mm3 (150-400); RDW Coefficient Variation 12.9 % (11.7-14.2); RDW Standard Deviation 43.9 fL (35.1-46.3); Red Blood Cell Count 4.13 M/mm3 (3.80-5.20); White Blood Cell Count 7.31 K/mm3 (4.00-11.30)
[2023-11-17 22:43] LABS: Albumin, Blood 3.4 g/dL (3.4-5.0); Albumin/Globulin Ratio 0.9 (0.8-1.8); Bilirubin, Total 0.2 mg/dL (0.1-1.0); Bun/Creatinine Ratio 15.7 (12.0-20.0); Calcium, Blood 8.9 mg/dL (8.5-10.1); Creatinine, Blood 0.83 mg/dL (0.40-1.00); Globulin, Blood 3.8 g/dL (2.2-4.0); Total Protein, Blood 7.2 g/dL (6.4-8.2)
[2023-11-18 01:16] LABS: Magnesium, Blood 1.9 mg/dL (1.6-2.4); Phosphorus, Blood 3.7 mg/dL (2.5-4.9); Thyroid Stimulating Hormone 2.28 uIU/mL (0.360-4.800)
[2023-11-18 02:13] LABS: Source, Urine Clean Catch
[2023-11-18 02:25] LABS: Bilirubin, Urine Neg (Neg); Blood, Urine Neg (Neg); Glucose Qualitative, Urine Neg (Neg); Ketones, Urine Neg (Neg); Leukocyte Esterase, Urine 1+ (Neg); Nitrite, Urine Neg (Neg); Protein, Urine Neg (Neg); Specific Gravity, Urine 1.015 (1.003-1.022); Urobilinogen, Urine NORM (Normal)
[2023-11-18 02:42] LABS: Appearance, Urine Clear (Clear); Color, Urine Yellow (P-Yellow)
[2023-11-18 02:44] LABS: Bacteria Few /hpf; Red Blood Cells, Urine 0-2 /hpf (0-2); Squamous Epithelial Cells Few /hpf (Few); White Blood Cells, Urine 0-2 /hpf (0-5)
[2023-11-18 03:43] VITALS: BP 103/75
== END 2023-11-18 03:44 | disposition home or self-care (01) ==
LOC: ER 21:42
PROVIDERS: Emergency Medicine; Student in an Organized Health Care Education/Training Program
DX: R03.1 Nonspecific low blood-pressure reading (principal); R07.9 Chest pain, unspecified; I10 Essential (primary) hypertension; C50.919 Malignant neoplasm of unspecified site of unspecified female breast; Z79.810 Long term (current) use of selective estrogen receptor modulators (SERMs); Z79.899 Other long term (current) drug therapy
CPT/HCPCS: 71046; 80053; 81001; 83735; 84100; 84443; 84484; 84703; 85025; 93005; 93010; 99285-25

== ENCOUNTER → 2023-11-24 | Outpatient (CLI) | payer OTHER ==
[2023-11-27 11:02] LABS: C. TRACHOMATIS BY TMA,THINPREP Negative (Negative); N. GONORRHOEAE BY TMA,THINPREP Negative (Negative); SPECIMEN SOURCE Not Provided
== END ==
LOC: LAB SHORT 13:51 → LAB 13:51
PROVIDERS: Advanced Practice Midwife
DX: Z01.419 Encounter for gynecological examination (general) (routine) without abnormal findings (principal); Z11.3 Encounter for screening for infections with a predominantly sexual mode of transmission
CPT/HCPCS: 87491; 87591